=== PATIENT | female | born 1985 | race Caucasian/White ===

== ENCOUNTER 2018-02-08 07:51 | Emergency (ER) | payer SELFPAY ==
[~2018-02-08] VITALS: Ht 160 cm; Wt 55.8 kg
[2018-02-08 08:42] LABS: Urine Bacteria MOD /hpf (None Seen); Urine Blood Negative /uL (Negative); Urine Mucus FEW (None Seen); Urine Specific Gravity 1.034 (1.001-1.035); Urine WBC 13 /hpf (0 - 5)
[2018-02-08 09:32] VITALS: BP 110/70
[2018-02-08] MEDS ORDERED: cefTRIAXone SOD 1,000 MG VL ONE (10:34)
[2018-02-08] MEDS ORDERED: cefTRIAXone W LIDOCAINE 1 GM IM IM ONE (10:45)
== END 2018-02-08 10:58 | disposition home or self-care (01) ==
LOC: ER 07:55
DX: M54.5 Low back pain (principal); N39.0 Urinary tract infection, site not specified; F17.210 Nicotine dependence, cigarettes, uncomplicated; Z88.0 Allergy status to penicillin
CPT/HCPCS: 81001; 81025; 96372; 99283; J0696

== ENCOUNTER 2018-03-25 21:00 | Emergency (ER) | payer MEDICAID, OTHER ==
[~2018-03-25] VITALS: Ht 175.3 cm; Wt 72.6 kg
[2018-03-26] MEDS ORDERED: IBUPROFEN 600 MG TAB PO ONE
[2018-03-26 02:35] VITALS: BP 122/88
== END 2018-03-26 04:24 | disposition home or self-care (01) ==
LOC: EDBD 21:00 → ER 21:08
DX: S13.8XXA Sprain of joints and ligaments of other parts of neck, initial encounter (principal); F17.210 Nicotine dependence, cigarettes, uncomplicated; Z88.0 Allergy status to penicillin; Z88.6 Allergy status to analgesic agent; V49.49XA Driver injured in collision with other motor vehicles in traffic accident, initial encounter; Y93.89 Activity, other specified; Y99.8 Other external cause status; Y92.488 Other paved roadways as the place of occurrence of the external cause
CPT/HCPCS: 72040; 73030

== ENCOUNTER 2018-07-17 14:54 | Emergency (ER) | payer MEDICAID, OTHER ==
[~2018-07-17] VITALS: Ht 160 cm; Wt 61.2 kg
[2018-07-17 14:57] VITALS: BP 113/52
== END 2018-07-17 17:20 | disposition home or self-care (01) ==
LOC: EDBD 14:54 → EDUNIT# 14:54 → ER 15:18
DX: S61.532A Puncture wound without foreign body of left wrist, initial encounter (principal); S46.912A Strain of unspecified muscle, fascia and tendon at shoulder and upper arm level, left arm, initial encounter; F17.210 Nicotine dependence, cigarettes, uncomplicated; Z88.6 Allergy status to analgesic agent; Z88.0 Allergy status to penicillin; W54.0XXA Bitten by dog, initial encounter; Y93.89 Activity, other specified; Y99.8 Other external cause status; Y92.89 Other specified places as the place of occurrence of the external cause

== ENCOUNTER 2024-04-25 01:30 | Inpatient (IN) | payer MEDICAID ==
[~2024-04-25] VITALS: Ht 157.5 cm; Wt 81.2 kg
[2024-04-25] MEDS ORDERED: DERMOPLAST 60ML BOTTLE TOP PRN (02:45)
[2024-04-25] MEDS ORDERED: LACTATED RINGER'S 1,000 ML IV SCH (02:45)
[2024-04-25] MEDS ORDERED: miSOPROStol 100 mcg TAB PR PRN (02:45)
[2024-04-25] MEDS ORDERED: PHISODERM TOP SOLN 240ML BTL TOP PRN (02:45)
[2024-04-25] MEDS ORDERED: ONDANSETRON HCL 4 MG/2 ML VIAL IV PRN (02:45)
[2024-04-25] MEDS ORDERED: METHYLERGONOVINE MALEATE 0.2 MG/ML AMP IM PRN (02:45)
[2024-04-25] MEDS ORDERED: WITCH HAZEL-GLYCERIN PAD TOP PRN (02:45)
[2024-04-25] MEDS ORDERED: miSOPROStol 100 mcg TAB SL PRN (02:45)
[2024-04-25] MEDS ORDERED: LIDOCAINE 2%HCL (LOCAL ANESTH.) INJ 20ML MDV IJ PRN ×2 (02:45→04:30)
[2024-04-25 02:54] LABS: Urine Bacteria None Seen /hpf (None Seen)
[2024-04-25 03:02] LABS: Basophils # (auto) 0.1 10 ^3/uL (0-0.2); Eosinophils # (auto) 0 10 ^3/uL (0-0.8); Monocytes # (auto) 1.1 10 ^3/uL (0-1.3); Monocytes % (auto) 8.4 % (0.0-12.0); Neutrophils # (auto) 10.4 10 ^3/uL (1.6-8.6); White Blood Cell 13.6 10^3/uL (4.4-10.8)
[2024-04-25 03:03] LABS: Basophils % (auto) 0.6 % (0.0-2.0); Eosinophils % (auto) 0.2 % (0.0-7.0); Hemoglobin 12.4 g/dL (12.2-16.2); Lymphocytes # (auto) 1.9 10 ^3/uL (0.4-5.4); Lymphocytes % (auto) 14.1 % (10.0-50.0); Mean Corpuscular Hemoglobin 26.7 pg (28.0-32.0); Mean Corpuscular Hgb Conc. 33.4 g/dL (32.0-36.0); Neutrophils % (auto) 76.7 % (37.0-80.0); Nucleated Red Blood Cells % 0.1 %; Platelet Count (auto) 212 10^3/uL (140-450); Red Blood Cells 4.63 10^6/uL (4.0-5.20); Red Cell Distribution Width 15.6 % (11.8-14.3)
[2024-04-25 03:12] LABS: Amphetamine Screen, Urine Neg (NEGATIVE); Barbiturate Scree,Urine Neg (NEGATIVE); Benzodiazephine Screen, Urine Neg (NEGATIVE); Cannabinoid Screen, Urine Neg (NEGATIVE); Cocaine Screen, Urine Neg (NEGATIVE); Opiate Scree,Urine Neg (NEGATIVE); Phencyclidine Screen, Urine Neg (NEGATIVE)
[2024-04-25 03:15] LABS: Alanine Aminotransferase 20 U/L (7-40); Alkaline Phosphatase 167 U/L (46-116); Anion Gap 8 (5-15); Aspartate Aminotransferase 17 U/L (13-40); BUN/Creatinine Ratio 9.1 (10.0-20.0); Blood Urea Nitrogen 7 mg/dL (9-23); Carbon Dioxide 21 mmol/L (20-31); Chloride 104 mmol/L (98-107); Glucose 96 mg/dL (74-106); Potassium 3.8 mmol/L (3.5-5.1); Sodium 133 mmol/L (136-145)
[2024-04-25 03:16] LABS: Bilirubin, Total 0.7 mg/dL (0.2-1.0); Total Protein 6.9 g/dL (5.7-8.2)
[2024-04-25 03:32] LABS: INR 0.96 (0.9-1.15); Partial Thromboplastin Time 27.1 SEC (24.5-34.5); Prothrombin Time 10.2 sec (9.3-11.8)
[2024-04-25 04:05] LABS: Urine Blood 3+ /uL (Negative); Urine Clarity Clear (Clear); Urine Color Colorless (Yellow); Urine Protein, UAD Negative (Negative); Urine Specific Gravity 1.003 (1.001-1.035); Urine Urobilinogen Normal (Negative); Urine WBC 2 /hpf (0 - 5)
[2024-04-25] MEDS ORDERED: LACT. RINGERS/OXYTOCIN 20UNITS 500 ML IV ONE (04:15)
[2024-04-25] MEDS ORDERED: BUTORPHANOL TARTRATE 2 MG/1 ML VIAL IV PRN ×2 (04:30)
[2024-04-25] MEDS: OXYTOCIN 10UNIT/ML 1ML VIAL IM ONE (11:46)
[2024-04-25] MEDS ORDERED: IBUPROFEN 600 MG TAB PO PRN (12:15)
[2024-04-25] MEDS ORDERED: METHYLERGONOVINE MALEATE 0.2 MG/ML AMP IM ONE (12:15)
[2024-04-25 15:15] VITALS: BP 116/55; PULSE 86; RESP 18; TEMP 98.8
[2024-04-25] MEDS: LACT. RINGERS/OXYTOCIN 20UNITS 500 ML IV ONE (16:40)
[2024-04-25 19:00] VITALS: BP 97/56; PULSE 89; RESP 15; TEMP 98.4
[2024-04-25 23:10] VITALS: BP 97/60; PULSE 98; RESP 16; TEMP 98.2
[2024-04-26 07:00] VITALS: BP 103/65; PULSE 88; RESP 16; TEMP 97.8; O2SAT 98
== END 2024-04-26 14:50 | disposition home or self-care (01) | DRG 560 ==
LOC: LDRP 01:30 → OBSVTOIN 02:30 → LDRP 02:31
PROVIDERS: ADMIT Obstetrics & Gynecology; ATTEND Obstetrics & Gynecology
PROC: 10E0XZZ Delivery of Products of Conception, External Approach (ICD-10-PCS; principal; 2024-04-25)
PROC: 0HQ9XZZ Repair Perineum Skin, External Approach (ICD-10-PCS; 2024-04-25)
DX: O69.81X0 Labor and delivery complicated by cord around neck, without compression, not applicable or unspecified (principal); Z37.0 Single live birth; O70.0 First degree perineal laceration during delivery; Z3A.38 38 weeks gestation of pregnancy; Z88.6 Allergy status to analgesic agent; Z88.0 Allergy status to penicillin; Z88.2 Allergy status to sulfonamides
CPT/HCPCS: 36415; 59409; 76815; 80053; 80307; 81001; 81002; 85025; 85610; 85730; 86592; 86703; 86780; 86803; 86850; 86900; 86901; 87340; 94760; 94762; 96365; 96366; 96372; G0378; J2590